=== PATIENT | male | born 1985 | race Caucasian/White ===

== ENCOUNTER 2018-04-28 17:13 | Emergency (ER) | payer BC ==
--- NOTE | 2018-04-28 18:00 | EDPHY ---
H & P Stated Complaint: CP, back pain Time Seen by Provider: 04/28/18 17:43 HPI/ROS: CHIEF COMPLAINT: Chest pain HISTORY OF PRESENT ILLNESS: 32-year-old male with hypertension presents with chest pain. Onset of intermittent chest pain 4 days ago. The pain is left sided, mild, 3/10 and typically lasts 30 min. Able to continue his usual activities while pain is present. No exertional chest pain. No clear alleviating or aggravating factors. Also c/o one-week history left mid thoracic pain. The thoracic pain is mild, increases with left arm movement and does not seem to be related to the left chest pain. Cardiac risk factors positive for family history(paternal grandfather had TN in his 40s). Nonsmoker; no diabetes or hypercholesterolemia. REVIEW OF SYSTEMS: complete 10 point ROS reviewed and is negative except for the noted elements in the HPI - Personal History Current Tetanus/Diphtheria Vaccine: Yes Current Tetanus Diphtheria and Acellular Pertussis (TDAP): Yes - Medical/Surgical History Hx Asthma: No Hx Chronic Respiratory Disease: No Hx Diabetes: No Hx Cardiac Disease: No Hx Renal Disease: No Hx Cirrhosis: No Hx Alcoholism: No Hx HIV/AIDS: No Hx Splenectomy or Spleen Trauma: No Other PMH: HTN, R shoulder surgery - Social History Smoking Status: Never smoked - Physical Exam Exam: General Appearance: Alert, pleasant Eyes: Pupils equal and round, no conjunctival pallor or injection ENT, Mouth: Mucous membranes moist Neck: Normal inspection Respiratory: Lungs are clear to auscultation Cardiovascular: Regular rate and rhythm, no murmur Gastrointestinal: Abdomen is soft and nontender Back: Point tenderness left periscapular area Neurological: A&O, nonfocal exam Skin: Warm and dry, no rash Extremities: Nontender, no pedal edema Psychiatric: Anxious Constitutional: Initial Vital Signs Temperature (C) 36.5 C 04/28/18 17:18 Heart Rate 103 H 04/28/18 17:18 Respiratory Rate 16 04/28/18 17:18 Blood Pressure 185/99 H 04/28/18 17:18 O2 Sat (%) 97 04/28/18 17:18 O2 Delivery Mode Room Air Allergies/Adverse Reactions: No Known Allergies Allergy (Unverified 04/28/18 17:17) Home Medications: Medication Instructions Recorded Lisinopril 04/28/18 Propecia 04/28/18 Medical Decision Making - Diagnostics EKG Interpretation: EKG interpreted by me reveals sinus arrhythmia, rate 115, no ST or T segment changes. Interpretation: Abnormal EKG Imaging Results: Imaging Impressions Chest X-Ray 04/28/18 17:57 Impression: Normal. Imaging: I viewed and interpreted images myself ED Course/Re-evaluation: This patient with risk factors for coronary artery disease, including hypertension and family history, presents with atypical chest pain. Stat EKG reveals no evidence of ischemia and clinical history does not suggest ischemia. Troponin is normal and chest x-ray is unremarkable. Heart score is 1. Results discussed with the patient. After careful consideration, I find no evidence of acute coronary syndrome and I do not feel that further ED testing is indicated. Shared decision making with pt, he concurs. Likely musculoskeletal etiology of pain. He will follow up with a oil spreader operator for consideration of provocative testing, given risk factors of hypertension and family history. Chest pain warning signs discussed. Differential Diagnosis: Differential diagnosis includes though it is not limited to pneumonia, pneumothorax, pulmonary embolism, aortic dissection, pericarditis, acute coronary syndrome. - Data Points Laboratory Results: Laboratory Results 04/28/18 17:35 04/28/18 17:35 04/28/18 04/28/18 04/28/18 17:38 17:35 17:35 WBC 8.32 10^3/uL 10^3/uL (3.80-9.50) RBC 5.34 10^6/uL 10^6/uL (4.40-6.38) Hgb 16.3 g/dL g/dL (13.7-17.5) Hct 47.0 % % (40.0-51.0) MCV 88.0 fL fL (81.5-99.8) MCH 30.5 pg pg (27.9-34.1) MCHC 34.7 g/dL g/dL (32.4-36.7) RDW 12.9 % % (11.5-15.2) Plt Count 226 10^3/uL 10^3/uL (150-400) MPV 11.6 fL fL (8.7-11.7) Neut % (Auto) 57.7 % % (39.3-74.2) Lymph % (Auto) 30.4 % % (15.0-45.0) [place] % (Auto) 10.0 % % (4.5-13.0) Eos % (Auto) 1.1 % % (0.6-7.6) Baso % (Auto) 0.6 % % (0.3-1.7) Nucleat RBC Rel Count 0.0 % % (0.0-0.2) Absolute Neuts (auto) 4.80 10^3/uL 10^3/uL (1.70-6.50) Absolute Lymphs (auto) 2.53 10^3/uL 10^3/uL (1.00-3.00) Absolute Monos (auto) 0.83 10^3/uL H 10^3/uL (0.30-0.80) Absolute Eos (auto) 0.09 10^3/uL 10^3/uL (0.03-0.40) Absolute Basos (auto) 0.05 10^3/uL 10^3/uL (0.02-0.10) Absolute Nucleated RBC 0.00 10^3/uL 10^3/uL (0-0.01) Immature Gran % 0.2 % % (0.0-1.1) Immature Gran # 0.02 10^3/uL 10^3/uL (0.00-0.10) Sodium 139 mEq/L mEq/L (135-145) Potassium 4.2 mEq/L mEq/L (3.5-5.2) Chloride 104 mEq/L mEq/L (97-110) Carbon Dioxide 21 mEq/l L mEq/l (22-31) Anion Gap 14 mEq/L mEq/L (6-14) BUN 15 mg/dL mg/dL (7-23) Creatinine 1.2 mg/dL mg/dL (0.7-1.3) Estimated GFR > 60 Glucose 103 mg/dL H mg/dL (70-100) Calcium 10.1 mg/dL mg/dL (8.5-10.4) POC Troponin I 0.00 ng/mL ng/mL (0.00-0.08) Point of Care Test Results: Chemistry 04/28/18 17:38 POC Troponin I 0.00 ng/mL ng/mL (0.00-0.08) Departure - Departure Disposition: Home, Routine, Self-Care Clinical Impression: Chest pain Qualifiers: Chest pain type: precordial pain Qualified Code(s): R07.2 - Precordial pain Condition: Good Instructions: Chest Pain (ED) Additional Instructions: 1. Based upon the testing done in the Emergency Department today we see no evidence of a heart attack. 2. We are unable to fully exclude coronary artery disease based upon the testing available in the Emergency Department. 3. For this reason, we would like you to be seen by cardiology for consideration of additional testing within the next 3 days. 4. Please contact the oil spreader operator you have been referred to schedule this appointment as soon as possible. Their offices are typically open from 8:30am- 5pm M-F. 5. Please return to the Emergency Department immediately for any recurrent chest pain, difficulty breathing or other concerns. Referrals: Darshan Kaur MD [Medical Doctor] - As per Instructions (Call to make an appointment.)
[2018-04-28 18:04] LABS: PLATELET COUNT 226 10^3/uL (150-400)
[2018-04-28 18:43] VITALS: BP 137/65
--- NOTE | 2018-04-28 22:45 | CPEKG ---
Test Reason : OPEN Blood Pressure : / mmHG Vent. Rate : 115 BPM Atrial Rate : 120 BPM P-R Int : 068 ms QRS Dur : 089 ms QT Int : 367 ms P-R-T Axes : 080 065 019 degrees QTc Int : 508 ms Fast sinus arrhythmia Right atrial enlargement Prolonged QT interval Confirmed by Isadora Scanlon ([id number]) on 04/28/2018 10:44:50 PM Referred By: Confirmed By:Isadora Scanlon
--- NOTE | 2018-04-29 11:17 | CPEKG ---
Test Reason : OPEN Blood Pressure : / mmHG Vent. Rate : 089 BPM Atrial Rate : 086 BPM P-R Int : 134 ms QRS Dur : 096 ms QT Int : 356 ms P-R-T Axes : 075 055 041 degrees QTc Int : 434 ms Sinus arrhythmia Probable left atrial enlargement ST elev, probable normal early repol pattern Confirmed by Quinton Wood ([id number] on 04/29/2018 11:17:08 AM Referred By: Confirmed By:Quinton Wood
== END 2018-04-28 18:40 | disposition home or self-care (01) ==
DX: R07.2 Precordial pain (principal); I10 Essential (primary) hypertension; Z82.49 Family history of ischemic heart disease and other diseases of the circulatory system
CPT/HCPCS: 84484-PO